=== PATIENT | male | born 1955 | race Caucasian/White ===

== ENCOUNTER 2021-01-30 12:33 | Outpatient (CLI) | payer BC | END 2021-01-30 12:34 | disposition home or self-care (01) | LOC: TBSIIMAG 12:33 | PROVIDERS: ATTEND Orthopaedic Surgery | DX: M25.561 Pain in right knee (principal); M84.361A Stress fracture, right tibia, initial encounter for fracture; S83.231A Complex tear of medial meniscus, current injury, right knee, initial encounter; M22.41 Chondromalacia patellae, right knee ==

== ENCOUNTER 2021-02-13 18:19 | Outpatient (CLI) | payer BC ==
[2021-02-13 19:08] LABS: #Basophils 0.1 10x3/uL (0.0-0.2); #Eosinphils 0.1 10x3/uL (0.0-0.5); #Neutrophils 4.7 10x3/uL (1.5-8.4); %Basophils 0.5 % (0.0-2.0); %Eosinophils 0.9 % (0.0-6.0); %Monocytes 9.6 % (0.0-10.0); %Neutrophils 45.7 % (40.0-75.0); Hemoglobin 16.9 g/dL (13.5-17.5); Mean Corpuscular HGB CONC 32.8 g/dL (32.0-36.0); Mean Corpuscular Hemoglobin 30.7 pg (27.0-33.0); Mean Corpuscular Volume 93.6 fl (81.2-95.1); Mean Platelet Volume 10.6 fl (7.4-10.4); Platelet Count 205 10x3/uL (150-450); RBC Distribution Width 11.9 % (11.5-14.5); White Blood Cell (WBC) Count 10.2 10x3/uL (3.5-10.5)
[2021-02-13 19:18] LABS: Anion Gap 14 mmol/L (10-20); BUN (Urea Nitrogen) 16 mg/dL (8.4-25.7); Calc. Creatinine Clearance 0 mL/min (70-130); Calcium 9.8 mg/dL (7.8-10.44); Carbon Dioxide 29 mmol/L (23-31); Chloride 103 mmol/L (98-107); Glucose 100 mg/dL (80-115); Potassium 4.5 mmol/L (3.5-5.1); Sodium 141 mmol/L (136-145)
[2021-02-14 11:07] LABS: SARS-CoV-2 PCR by NAA Not Detected (NotDetected)
== END 2021-02-13 18:20 | disposition home or self-care (01) ==
LOC: LABBT 18:19
PROVIDERS: ATTEND Orthopaedic Surgery
DX: Z01.818 Encounter for other preprocedural examination (principal); Z20.822 Contact with and (suspected) exposure to COVID-19
CPT/HCPCS: 80048; 85025; 93005; 93010; U0003; U0005

== ENCOUNTER 2021-02-16 07:03 | Day surgery (SDC) | payer BC ==
[2021-02-14 15:22] VITALS: BMI 27.7
[2021-02-16] MEDS ORDERED: PROPOFOL 20 ML ONE (07:37)
[2021-02-16] MEDS ORDERED: Bupivacaine 0.25% 10 ML VIAL ONE (08:42)
[2021-02-16] MEDS ORDERED: Lidocaine 1% w/Epinephrine 1:100K 20 ML VIAL ONE (08:42)
[2021-02-16] MEDS ORDERED: Clindamycin/D5W 600 mg/50 ml Premix Bag ONE (08:48)
[2021-02-16] MEDS ORDERED: Lidocaine 1% PF 5 ML VIAL ONE (08:54)
[2021-02-16] MEDS ORDERED: Ondansetron PF 4 MG/2 ML Vial ONE (08:54)
[2021-02-16] MEDS ORDERED: Dexamethasone 20 MG/5 ML VIAL ONE (08:54)
[2021-02-16] MEDS ORDERED: PROPOFOL 200 MG/20 ML VIAL ONE (08:54)
[2021-02-16] MEDS ORDERED: Ketorolac Tromethamine 30 MG/ML VIAL ONE (08:54)
[2021-02-16] MEDS ORDERED: ePHEDrine 50 MG/ML VIAL ONE (08:54)
[2021-02-16] MEDS ORDERED: Hydrocortisone Sod Succ/PF 100 mg/2 ml Vial ONE (09:22)
[2021-02-16] MEDS ORDERED: Hydrocortisone Sod Succ/PF 250 mg/2 ml Vial ONE (09:22)
[2021-02-16] MEDS ORDERED: methylPREDNISolone Sod Succ 40 MG VIAL ONE (09:24)
[2021-02-16] MEDS ORDERED: methylPREDNISolone Acetate 40 mg/ml Vial ONE ×2 (09:24→12:20)
== END 2021-02-16 12:00 | disposition home or self-care (01) ==
LOC: SDC 07:03
PROVIDERS: ATTEND Orthopaedic Surgery
PROC: 0SBC4ZZ Excision of Right Knee Joint, Percutaneous Endoscopic Approach (ICD-10-PCS; principal; 2021-02-16)
DX: S83.231A Complex tear of medial meniscus, current injury, right knee, initial encounter (principal); M22.41 Chondromalacia patellae, right knee; I10 Essential (primary) hypertension; Z88.0 Allergy status to penicillin; X50.1XXA Overexertion from prolonged static or awkward postures, initial encounter
CPT/HCPCS: J1100; J1720; J1885; J2405; J2704; J2920; J3490; S0020